=== PATIENT | male | born 1965 | race Caucasian/White ===

== ENCOUNTER → 2017-10-16 | Outpatient (REF) ==
[~2017-10-16] MED LIST: CARDI-OMEGA1000 MG PO; LEXAPRO 10MG10 MG PO; LEXAPRO20 MG; MULTI VITAMINS1 TAB PO; PRINZIDE 12.5 M1 TAB PO; ZESTRIL 20MG TA20 MG PO; ZYRTEC 10MG10 MG PO; ZYRTEC-D 5 MG-11 TER PO
== END ==
LOC: ZLAB.WCH 18:16
DX: Z12.5 Encounter for screening for malignant neoplasm of prostate (principal)
CPT/HCPCS: G0103

== ENCOUNTER → 2018-10-19 | Outpatient (REF) ==
[2018-10-17 17:01] LABS: THYROID STIMULATING HORMONE 2.18 uIU/mL (0.465-4.680)
[2018-10-17 17:03] LABS: PSA-TOTAL 0.56 ng/mL (0-4)
== END ==
LOC: ZLAB.WCH 14:07
PROVIDERS: Physician Assistant
DX: Z01.89 Encounter for other specified special examinations (principal)
CPT/HCPCS: G0103